=== PATIENT | female | born 2005 | race Caucasian/White ===

== ENCOUNTER → 2024-04-02 10:00 | Outpatient (REF) | payer OTHER, SELFPAY ==
[2024-04-02 10:15] VITALS: BMI 15.9
[2024-04-02 11:51] LABS: Hematocrit 34.9 % (37.0-47.0); Hemoglobin 11.2 g/dL (12.0-16.0); Mean Corp Hgb Conc. 32.1 g/dL (33.0-37.0); Mean Corpuscular Hgb 28.7 pg (27.0-31.0); Mean Corpuscular Volume 89.5 fL (81.0-99.0); Mean Platelet Volume 11.1 fL (7.4-10.4); Platelet Count 284 10^3/uL (130-400); White Blood Cell Count 5.5 10^3/uL (4.8-10.8)
[2024-04-02 12:15] LABS: HCG, Urine Qualitative Screen Negative
== END ==
LOC: REG 10:00
PROVIDERS: ATTENDING PHYSICIAN Otolaryngology; FAMILY PHYSICIAN Internal Medicine
DX: J34.2 Deviated nasal septum (principal)
CPT/HCPCS: 36415; 81025; 85027